=== PATIENT | female | born 1995 | race Caucasian/White ===

== ENCOUNTER 2017-06-19 22:17 | Emergency (ER) | payer BC ==
[~2017-06-19] VITALS: Ht 165.1 cm; Wt 84.1 kg
[2017-06-20 00:03] VITALS: BP 130/73; PULSE 104; TEMP 98
== END 2017-06-20 00:02 | disposition home or self-care (01) ==
LOC: COL.ER 22:17
DX: S01.111A Laceration without foreign body of right eyelid and periocular area, initial encounter (principal); W22.8XXA Striking against or struck by other objects, initial encounter; Y93.64 Activity, baseball

== ENCOUNTER 2017-06-25 08:11 | Emergency (ER) | payer BC ==
[2017-06-25 08:14] VITALS: BP 118/66; PULSE 82
== END 2017-06-25 08:19 | disposition home or self-care (01) ==
LOC: COL.ER 08:11
DX: S01.111D Laceration without foreign body of right eyelid and periocular area, subsequent encounter (principal); X58.XXXD Exposure to other specified factors, subsequent encounter